=== PATIENT | female | born 1950 | race Caucasian/White ===

== ENCOUNTER → 2018-10-10 11:34 | Outpatient (CLI) | payer MEDICARE, MEDICAID, SELFPAY ==
--- NOTE | 2018-10-10 11:40 | CA_ITS ---
CA echo doppler complete PROCEDURE: INDICATIONS FOR THE TEST: Chest pain COPD Heart Murmur Tobacco Smoking Palpitations Fatigue Syncope Edema Hypertension Diabetes Mellitus Rheumatic Fever SOB DOEXObesityXHyperlipidemia Family History HD Additional History ABN EKG PATIENT INFORMATION HEIGHT: 68 WEIGHT:262 GENDER: Female B/P:122/73 2-D/M-MODE INTERPRETATION: 2-D MEASUREMENTS OBSERVED VALUES IN CMS Right Ventricular Dimension (RVDd) 3.0 Interventricular Septum (Thickness)(IVsd) 1.2 Left Ventricular Internal Dimensions(LVIDd) 5.0 Left Ventricular Posterior Wall (Thickness)(LVPWd) 1.2 Aortic Root 3.2 Aortic Cusp Separation 1.4 Left Atrial Dimensions (LAD) 3.6 2D 1. Technically difficult study because of the patient's factor and poor acoustic windows 2. Left atrium is mildly enlarged, left ventricle is normal size, mild concentric left ventricular hypertrophy, visually estimated ejection fraction of 55% with no regional wall motion abnormality. 3. The right atrium and right ventricle are mildly enlarged with normal contractility. 4. The aortic valve is minimally thickened and gastritis leaflet continue to display mobility. 5. The mitral and tricuspid valve leaflets are minimally thickened , there is no mitral valve prolapse. 6. Pulmonic valve is poorly visualized. 7. No significant pericardial effusion noted. DOPPLER INTERROGATION: Doppler interrogation of the aortic, mitral and tricuspid valvular presence of mild mitral and tricuspid regurgitation, tricuspid regurgitation jet velocity is inadequate for calculation of the right ventricular systolic pressure, grade 1 diastolic dysfunction seen with tissue Doppler evidence of raised left atrial pressure, inferior vena cava is dilated without significant inspiratory collapse. CONCLUSION: 1. Mildly enlarged left atrium, normal left ventricular size, mild concentric left ventricular hypertrophy, visually estimated ejection fraction 55% with no regional wall motion abnormality, grade 1 diastolic dysfunction seen with tissue Doppler evidence of raised left atrial pressure. 2. Mildly enlarged right ventricle with normal contractility. 3. Mild mitral and tricuspid regurgitation, tricuspid regurgitation jet velocity is inadequate for calculation of the right ventricular systolic pressure, inferior vena cava is mildly dilated, without significant inspiratory collapse. 4. No significant pericardial effusion.
== END ==
PROVIDERS: PCP Family Medicine; Visit Provider Internal Medicine
DX: R94.31 Abnormal electrocardiogram [ECG] [EKG] (principal)
CPT/HCPCS: 93306

== ENCOUNTER → 2018-10-18 14:19 | Outpatient (CLI) | payer MEDICARE, MEDICAID, SELFPAY ==
[2018-10-18 17:01] LABS: Anion Gap 16.4 mEq/L (5-15); Blood Urea Nitrogen 32 mg/dL (7-18); Calcium 9.9 mg/dL (8.5-10.1); Carbon Dioxide 28 mmol/L (21.0-32.0); Chloride 100 mmol/L (98-107); Creatinine,Serum 1.13 mg/dL (0.55-1.02); Estimated Glomerular Filt Rate 48 ml/min (>60); GFR (African American) 58 ML/MIN (>60); Glucose 157 mg/dL (74-106); Potassium 4.4 mmoL/L (3.5-5.1); Sodium 140 mmol/L (136-145)
== END ==
PROVIDERS: Visit Provider Nurse Practitioner Family
DX: R06.02 Shortness of breath; I27.20 Pulmonary hypertension, unspecified; I50.82 Biventricular heart failure; I51.89 Other ill-defined heart diseases
CPT/HCPCS: 36415; 80048

== ENCOUNTER → 2018-12-13 07:34 | Outpatient (CLI) | payer MEDICARE, MEDICAID, SELFPAY ==
--- NOTE | 2018-12-13 07:35 | CA_ITS ---
PROCEDURE: 2-D M-mode and color Doppler study INDICATIONS FOR THE TEST: Chest pain COPD Heart Murmur Tobacco Smoking Palpitations Fatigue+ Syncope Edema Hypertension+Diabetes Mellitus Rheumatic Fever SOB+VAZQUEZ+Obesity+Hyperlipidemia Family History HD Additional History ABN EKG, PUL HTN PATIENT INFORMATION HEIGHT: 68 WEIGHT:262 GENDER: Female B/P:86/61 2-D/M-MODE INTERPRETATION: 2-D MEASUREMENTS OBSERVED VALUES IN CMS Right Ventricular Dimension (RVDd) 2.9 Interventricular Septum (Thickness)(IVsd) 1.7 Left Ventricular Internal Dimensions(LVIDd) 6.0 Left Ventricular Posterior Wall (Thickness)(LVPWd) 1.1 Aortic Root 3.2 Aortic Cusp Separation 1.8 Left Atrial Dimensions (LAD) 4.9 2D 1. Left atrium is moderately enlarged, left ventricle is normal size, mild concentric left ventricular hypertrophy, visually estimated ejection fraction 55% with no regional wall motion abnormality. 2. The right atrium is normal size, right ventricle is mildly enlarged with normal contractility. 3. The aortic valve is thickened and calcified leaflet continue to display good mobility. 4. The mitral and tricuspid valve leaflets are minimally thickened. 5. The pulmonic valve is poorly visualized. 6. No significant pericardial effusion noted. DOPPLER INTERROGATION: Doppler interrogation of the aortic, mitral and tricuspid valvular presence of moderate mitral and mild tricuspid regurgitation, tricuspid regurgitation jet velocity is inadequate for calculation of the right ventricular systolic pressure, grade 1 diastolic dysfunction seen with tissue Doppler evidence of raised left atrial pressure. CONCLUSION: 1. Moderately enlarged left atrium, normal left ventricular size, mild concentric left ventricular hypertrophy, visually estimated ejection fraction 55% with no regional wall motion abnormality. Grade 1 diastolic dysfunction seen with tissue Doppler evidence of raised left atrial pressure. 2. Moderate mitral and mild tricuspid regurgitation 3. No significant pericardial effusion noted.
== END ==
PROVIDERS: PCP Family Medicine; Visit Provider Urology
DX: I10 Essential (primary) hypertension (principal); I27.20 Pulmonary hypertension, unspecified; I34.0 Nonrheumatic mitral (valve) insufficiency; R06.02 Shortness of breath
CPT/HCPCS: 93306

== ENCOUNTER → 2019-03-26 14:29 | Outpatient (POV) | payer MEDICARE, MEDICAID, SELFPAY | PROVIDERS: Visit Provider Internal Medicine Nephrology | DX: Z00.00 Encounter for general adult medical examination without abnormal findings (principal) ==

== ENCOUNTER → 2021-03-09 09:49 | Outpatient (POV) | payer MEDICARE, MEDICAID, SELFPAY ==
[2021-03-09 09:59] VITALS: BP 109/54; PULSE 70; RESP 18; TEMP 36.7; O2SAT 96; BMI 38.5
--- NOTE | 2021-03-09 11:18 | HMH.PMCON ---
Assessment and Plan (1) Sacroiliitis Status: Acute Category: Medical Code(s): M46.1 - Sacroiliitis, not elsewhere classified (2) Left low back pain Status: Acute Qualifiers: Chronicity: acute Category: Medical Code(s): M54.5 - Low back pain - Assessment and plan all Dx Assessment and Plan for all problems:: Patient is tender to palpation to her left SI joint as well as tenderness above and below the SI joint. She is having left buttock pain and left hip pain. We will schedule the patient for a left SI joint injection. She is getting relief with pressure to her left SI joint. She does have a positive Jaky's, compression, distraction test. We will follow up with her afterwards for reevaluation of symptoms. Patient is diabetic. Her typical blood sugars are running in the 150s. She is managed with oral medications. Possible side effects of corticosteroids have been discussed with the patient. Patient has been instructed to contact the clinic with any concerns before the next appointment. Dr. Castano has reviewed this note and agrees with this plan of care. This note was dictated using voice recognition software and make contain errors or omissions. HPI - Data of Consult Patient: new to practice Consult date: 03/09/21 Requesting Physician: Sharri Leyva APRN Primary Care Provider: YOMI Serrano - Consult Narrative Reason for consult: Low back pain History of present illness: Ms. Galvez is a 70 year old female who presents today for consultation. Patient has been seen with YOMI Harper. Patient says that she has had low back pain approximately 5 to 6 months. She does have a history of spinal surgery that was performed by Dr. Regan Edouard in 2017. She is unsure of the type of surgery that she had at that time. She now is following with Dr. Conway. Patient is complaining of left low back pain that is radiating into her left hip. She says that the pain is worse with standing, walking, and when going up stairs. She says she is only able to walk 2 stairs at most without having severe pain. Sitting relieves the pain. She does have soreness to her left low back area. She reports that pressure gives her relief. Patient says that this past week, at [employer], she used a hymn book behind her back and this gave her relief while at [employer]. She does report to have had a right knee replacement approximately 1 year ago. Following her knee replacement, form by Dr. Pringle, the patient developed foot drop on the right foot. She now uses a brace to her foot. She says that her gait is off since having her right knee surgery. The patient is currently doing physical therapy which is not giving meds she is diabetic and does take oral medication for blood glucose control. Her average blood glucose level is in the 150s. The patient says that she has taken anti-inflammatories with no significant. Today, she rates her pain a 6 patient is currently taking gabapentin. She is tender to palpation to her left low back area. Patient also reports to have pain slightly above her left SI joint as well as pain into her left buttock. CC: Sharri Leyva APRN [facility] History I have reviewed the patient's past medical history: Yes Medical History: Reports:: Diabetes Mellitus Type 2, Hyperlipidemia, Hypertension *Have you ever received a pneumonia vaccine?: Yes *Have you received a flu vaccine this season?: Yes Other Medical History: Reports: Arthritis Other Surgeries: Yes: Hernia Repair, Tubal Ligation, Other Amputation: No Fractures: No - *Social History Smoking Status: Former smoker Tobacco Type: cigarettes #Yrs smoked (if former smoker): 20 Alcohol Intake: current Alcohol Intake Frequency:: holidays/special occasions only Substance Use Type: denies use *Occupational Status:: unemployed Housing: house Household Members: significant other *Travel in the last 8 weeks: None Family Hx:: Coronary Artery Disease, Stroke, Diabetes Rev
== END ==
PROVIDERS: PCP Physician Assistant; Visit Provider Clinical Nurse Specialist Family Health
DX: M46.1 Sacroiliitis, not elsewhere classified (principal); M54.5 Low back pain
CPT/HCPCS: 99202; G0463

== ENCOUNTER 2021-03-13 08:57 | Day surgery (SDC) | payer MEDICARE, MEDICAID, SELFPAY ==
[2021-03-13 09:01] VITALS: BP 135/96; PULSE 65; RESP 18; TEMP 36.7; O2SAT 97; BMI 62.8
--- NOTE | 2021-03-13 09:30 | HMH.PMPROC ---
- Procedure Date: 03/13/21 Time: 09:30 Anesthesiologist:: Ana Castro MD Complications:: None Pre-procedure Diagnosis:: Left sacroiliitis, left-sided low back pain, left-sided hip pain Post-procedure Diagnosis:: Same Indications for Procedure:: Patient is a very pleasant 70-year-old white female who presents today with sided chronic low back pain and left-sided hip pain related to the above diagnosis. She has trialed and failed conservative treatment including oral pain medications and home stretching program for greater than 6 weeks. She has previously undergone a right knee replacement and unfortunately developed a foot drop on the right postoperatively. She now uses a right ankle brace. Note, this patient is also diabetic with her average blood glucose levels in the 150s. The plan for today is for the patient to undergo left-sided SI joint injection under fluoroscopy. Procedure Details:: Informed consent was obtained and the risks and benefits of the procedure was explained to the patient. Patient was taken to the procedure room. Patient was placed prone on the procedure table. The left hip was prepped using ChloraPrep. The skin and subcutaneous tissues were anesthetized using lidocaine. I placed a 22-gauge spinal needle into the inferior aspect of the left SI joint. Needle placement was confirmed with dye. After this we injected 5 mL bupivacaine 0.25% and Depo-Medrol 40 mg into the left SI joint. The patient tolerated the procedure well with no complication. Plan and Disposition:: Follow-up with this patient in 2 weeks. Will reevaluate pain symptoms at that time. Discussed with the patient to closely monitor her blood close levels in the next 48 to 72 hours as she may develop transient hyperglycemia. I discussed with her if she becomes symptomatic or her sugars are very elevated she should go seek further evaluation at an urgent care/emergency room.
[2021-03-13 09:39] VITALS: BP 139/83; PULSE 65; RESP 18; O2SAT 96
[2021-03-13 09:41] VITALS: BP 139/83; PULSE 64; RESP 18; O2SAT 96
[2021-03-13 09:51] VITALS: BP 147/79; PULSE 66; RESP 18; O2SAT 97
== END 2021-03-13 09:52 | disposition home or self-care (01) ==
LOC: SC.PAINP 08:59
PROVIDERS: PCP Physician Assistant; Visit Provider Anesthesiology Pain Medicine
DX: M46.1 Sacroiliitis, not elsewhere classified (principal); M54.5 Low back pain; M25.552 Pain in left hip; E78.5 Hyperlipidemia, unspecified; I10 Essential (primary) hypertension; M19.90 Unspecified osteoarthritis, unspecified site; E11.9 Type 2 diabetes mellitus without complications; Z87.891 Personal history of nicotine dependence; I25.10 Atherosclerotic heart disease of native coronary artery without angina pectoris; K21.9 Gastro-esophageal reflux disease without esophagitis; F41.9 Anxiety disorder, unspecified; F32.9 Major depressive disorder, single episode, unspecified
CPT/HCPCS: 27096; G0260; J1040; Q9966

== ENCOUNTER → 2021-04-14 10:21 | Outpatient (POV) | payer MEDICARE, MEDICAID, SELFPAY ==
[2021-04-14 10:31] VITALS: BP 135/79; PULSE 83; RESP 18; O2SAT 95; BMI 36.5
--- NOTE | 2021-04-14 10:48 | HMH.PAINSOAP ---
[facility] Pain Management SOAP Note Subjective:: Low back patient is a pleasant 70-year-old white female who presents today for follow-up. The patient did undergo left SI joint injection on 03/13/2021. The patient reports that she got about 70 to 80% relief following the injection for about 3 to 4 days. Patient says that her significant other suffered from a fall with fractured ribs. Following the incident, she was helping him and lifting and pulling him from a sitting position. She says that the pain to her left low back area immediately returned. She is continuing with physical therapy. Physical therapy did advise the patient that it seems to be muscle related. She was advised that a muscle relaxer may be beneficial for her pain. She reports turning in bed makes her pain significantly worse. She is deferring on injective therapy until she returns from seeing her significant other who is currently in the hospital. She does report that he had other complications after the fall requiring him to be intubated and hospitalized. He was extubated yesterday, therefore, she would like to spend time with him. She does rate her pain a 6 out of 10 today. Review of Systems General: No recent weight changes, no fever, no sleep disturbances Respiratory: No cough, no shortness of air, no recurring pulmonary infections Cardiovascular/peripheral vascular: No chest pain, no palpitations, no edema, no shortness of breath Gastrointestinal: No new onset incontinence, normal bowel movements reported Genitourinary: No new onset incontinence Musculoskeletal: Left low back pain worse with turning to the left Psychiatric: [Normal mood/affect] Neurological: [Denies weakness in extremities], [denies balance issues] Objective:: Physical exam General: Alert and oriented x3, no acute distress, pleasant and cooperative, [on room air] Lungs: Respirations even and unlabored, symmetrical chest expansion Eyes: PERRL Musculoskeletal: Flexion and extension of lumbar [spine] somewhat guarded secondary to pain, strength in upper and lower extremities [5/5], [antalgic gait noted], positive Jaky's test, positive distraction test, positive compression test, positive Jordon's test Neurological: Speech clear, [hydraulic governor assembler equal], no gross sensory deficit Assessment:: Sacroiliitis left, myofascial pain left low back Plan:: We will schedule the patient for 2-week follow-up and start her on tizanidine 2 mg 1 tablet p.o. 3 times daily. We will see if this gives her relief. She will continue with physical therapy. If she does not get relief she will likely need to undergo a repeat SI injection on the left side. Patient has been instructed to contact clinic if she has any concerns for next appointment. Risks and benefits of the medication have been explained in detail to the patient. If side effects do present with the medication, she has been advised to stop the medication immediately and call the clinic. The patient has been advised to consult with his/her primary care provider and pharmacist regarding drug-drug interaction of medications currently prescribed. [facility] History I have reviewed the patient's past medical history: Yes Medical History: Reports:: Congestive Heart Failure, Coronary Artery Disease, Diabetes Mellitus Type 2, Hyperlipidemia, Hypertension, Valvular Heart Disease Denies:: Cancer, Diabetes Mellitus Type 1, MRSA, Seizures *Have you ever received a pneumonia vaccine?: Yes *Have you received a flu vaccine this season?: No Other Medical History: Reports: Arthritis. Denies: Blood Transfusion Reaction Other Surgeries: Yes: Hernia Repair, Tubal Ligation, Other (dr. boudreaux x2 back surgery) Amputation: No Fractures: No - *Social History Smoking Status: Former smoker Tobacco Type: cigarettes #Yrs smoked (if former smoker): 20 Alcohol Intake: never Alcohol Intake Frequency:: holidays/special occasions only Substance Use Type: denies use *Occupational Status::
== END ==
PROVIDERS: PCP Family Medicine; Visit Provider Clinical Nurse Specialist Family Health
DX: M46.1 Sacroiliitis, not elsewhere classified (principal); M79.18 Myalgia, other site
CPT/HCPCS: 99212; G0463

== ENCOUNTER → 2021-05-05 11:26 | Outpatient (POV) | payer MEDICARE, MEDICAID, SELFPAY ==
[2021-05-05 11:48] VITALS: BP 121/68; PULSE 69; RESP 18; O2SAT 95; BMI 41.1
--- NOTE | 2021-05-05 12:08 | HMH.PAINSOAP ---
[facility] Pain Management SOAP Note Subjective:: Patient is a 70-year-old white female who presents today for follow-up. Patient is being treated in the clinic for left sacroiliitis. She does have left low back pain and left mid back pain. She says she did undergo a left SI joint injection on 03/13/2021 and did get up to 70 to 80% relief for 3 to 4 days. Unfortunately, shortly after the injection she had to care for her significant other who suffered from a fall with fractured ribs. Following the accident she was doing heavy lifting and tugging and pulling. She feels that this inhibited the injection to work for very long. She is continue with physical therapy. She was advised that muscle relaxants would possibly give her relief per physical therapy. We did start her on muscle relaxant at last visit with tizanidine 2 mg 1 tablet p.o. 3 times daily. Unfortunately the medicine has been making the patient groggy and has not given her any relief. She does take the medicine up to 2 times daily. The patient says that she feels she got most relief with the injection. She would like to proceed with a repeat left SI joint injection. Patient has pain in her left low back area, left mid back area and left buttock with standing, walking, improved somewhat with sitting. Leaning back worsens her pain. Review of Systems General: No recent weight changes, no fever, no sleep disturbances Respiratory: No cough, no shortness of air, no recurring pulmonary infections Cardiovascular/peripheral vascular: No chest pain, no palpitations, no edema, no shortness of breath Gastrointestinal: No new onset incontinence, normal bowel movements reported Genitourinary: No new onset incontinence Musculoskeletal: Left low back pain with radiation into left mid back, left buttock pain Psychiatric: [Normal mood/affect] Neurological: [Denies weakness in extremities], [denies balance issues] Objective:: Physical exam General: Alert and oriented x3, no acute distress, pleasant and cooperative Lungs: Respirations even and unlabored, symmetrical chest expansion Eyes: PERRL Musculoskeletal: Flexion and extension of lumbar [spine] somewhat guarded secondary to pain, [antalgic gait noted], positive Jaky's test, positive distraction test, positive compression test, positive Jordon's test Neurological: Speech clear, no gross sensory deficit Assessment:: Left sacroiliitis, left low back pain Plan:: We will schedule the patient for a repeat left SI joint injection. She did get 70 to 80% relief with her previous injection. She is continuing with physical therapy. We will see her back after her injection for reevaluation of symptoms. Possible side effects of corticosteroids have been discussed with the patient. Risks and benefits of the procedure have been explained to the patient. Patient would like to proceed with the procedure. Patient has been instructed to contact the clinic with any concerns before the next appointment. Dr. Castano has reviewed this note and agrees with this plan of care. This note was dictated using voice recognition software and make contain errors or omissions. [facility] History I have reviewed the patient's past medical history: Yes Medical History: Reports:: Congestive Heart Failure, Coronary Artery Disease, Diabetes Mellitus Type 2, Hyperlipidemia, Hypertension, Valvular Heart Disease Denies:: Cancer, Diabetes Mellitus Type 1, MRSA, Seizures *Have you ever received a pneumonia vaccine?: Yes *Have you received a flu vaccine this season?: Yes Other Medical History: Reports: Arthritis. Denies: Blood Transfusion Reaction Other Surgeries: Yes: Hernia Repair, Tubal Ligation, Other (dr. boudreaux x2 back surgery) Amputation: No Fractures: No - *Social History Smoking Status: Former smoker Tobacco Type: cigarettes #Yrs smoked (if former smoker): 20 Alcohol Intake: never Alcohol Intake Frequency:: holidays/special occasions only Substance Use Type
== END ==
PROVIDERS: Visit Provider Clinical Nurse Specialist Family Health
DX: M46.1 Sacroiliitis, not elsewhere classified (principal); M54.50 Low back pain, unspecified
CPT/HCPCS: 99212; G0463

== ENCOUNTER → 2021-06-09 08:48 | Outpatient (POV) | payer MEDICARE, MEDICAID, SELFPAY ==
[2021-06-09 08:59] VITALS: BP 144/62; PULSE 73; RESP 18; O2SAT 95; BMI 34.9
--- NOTE | 2021-06-09 09:02 | P.CONS_ITS ---
[facility] Pain Management SOAP Note Subjective:: Patient is a 70-year-old white female who presents today for follow-up. We did schedule the patient for repeat left SI joint injection. She got 70 to 80% relief with her initial injection. She is here today because her injection was denied. Patient is having left low back pain with radiation into left buttock and hip. She does say that she is unable to have a repeat injection at this time due to scheduling of a left knee replacement with Dr. Dalton in [facility]. She says that that is scheduled on June 22. She would like to resume care in our clinic following knee surgery. She plans to contact the clinic after her surgery. Review of Systems General: No recent weight changes, no fever, no sleep disturbances Respiratory: No cough, no shortness of air, no recurring pulmonary infections Cardiovascular/peripheral vascular: No chest pain, no palpitations, no edema, no shortness of breath Gastrointestinal: No new onset incontinence, normal bowel movements reported Genitourinary: No new onset incontinence Musculoskeletal: The procedure left low back pain, left buttock pain, left hip pain Psychiatric: [Normal mood/affect] Neurological: [Denies weakness in extremities], [denies balance issues] Objective:: Physical exam General: Alert and oriented x3, no acute distress, pleasant and cooperative Lungs: Respirations even and unlabored, symmetrical chest expansion Eyes: PERRL Musculoskeletal: Flexion and extension of lumbar discomfort [spine] somewhat guarded secondary to pain, [antalgic gait noted], positive Jordon's test, positive distraction test, positive compression test, positive fabers test Did you definitelyNeurological: Speech clear, no gross sensory deficit Assessment:: low back pain, sacroiliitis left Plan:: Patient is planning left knee replacement on June 22, 2021 in [facility]. She would like to defer on injections until after surgery. she will call the clinic when she is cleared to resume injective therapy. Patient has been instructed to contact the clinic with any concerns before the next appointment. Dr. Castano has reviewed this note and agrees with this plan of care. This note was dictated using voice recognition software and make contain errors or omissions. [facility] History I have reviewed the patient's past medical history: Yes Medical History: Reports:: Congestive Heart Failure, Coronary Artery Disease, Diabetes Mellitus Type 2, Hyperlipidemia, Hypertension, Valvular Heart Disease Denies:: Cancer, Diabetes Mellitus Type 1, MRSA, Seizures *Have you ever received a pneumonia vaccine?: Yes *Have you received a flu vaccine this season?: Yes Other Medical History: Reports: Arthritis. Denies: Blood Transfusion Reaction Other Surgeries: Yes: Hernia Repair, Tubal Ligation, Other (dr. boudreaux x2 back surgery) Amputation: No Fractures: No - *Social History Smoking Status: Former smoker Tobacco Type: cigarettes #Yrs smoked (if former smoker): 20 Alcohol Intake: never Alcohol Intake Frequency:: holidays/special occasions only Substance Use Type: denies use *Occupational Status:: unemployed Housing: house Household Members: significant other *Travel in the last 8 weeks: None Family Hx:: Coronary Artery Disease, Stroke, Diabetes
== END ==
PROVIDERS: Visit Provider Clinical Nurse Specialist Family Health
DX: M54.50 Low back pain, unspecified (principal); M46.1 Sacroiliitis, not elsewhere classified
CPT/HCPCS: 99212; G0463